=== PATIENT | female | born 1950 | race Two or more races ===

== ENCOUNTER → 2024-11-11 | Outpatient (CLI) | payer MEDICARE, SELFPAY ==
--- NOTE | 2024-11-11 13:53 | XR_ITS ---
Examination: PA lateral chest 2 views TECHNIQUE: Upright PA lateral chest 2 views Exam date and time: November 11, 2024 1410 hours Comparison July 30, 2022 INDICATIONS: Coughing wheezing beginning 3 months ago. FINDINGS: Normal heart size No pneumonia or pulmonary edema Moderate osteopenia Accentuation basilar bronchial vascular markings IMPRESSION: Basilar bronchitis pattern
== END | disposition home or self-care (01) ==
LOC: CDIM 13:34
PROVIDERS: PCP Internal Medicine; Referring Provider Nurse Practitioner Family; Visit Provider Nurse Practitioner Family
DX: R05.3 Chronic cough (principal)
CPT/HCPCS: 71046

== ENCOUNTER → 2024-11-12 | Outpatient (CLI) | payer MEDICARE, SELFPAY ==
[2024-11-12 11:57] LABS: Influenza A Ag Negative; Influenza B Ag Negative; Respiratory Syncytial Virus Ag Negative (Negative)
[2024-11-12 15:17] LABS: Mono Screen Negative (Negative)
== END | disposition home or self-care (01) ==
LOC: COPL 10:15
PROVIDERS: PCP Internal Medicine; Referring Provider Nurse Practitioner Family; Visit Provider Nurse Practitioner Family
DX: R05.3 Chronic cough (principal); J42 Unspecified chronic bronchitis; R06.2 Wheezing
CPT/HCPCS: 36415; 86308; 87502; 87634

== ENCOUNTER → 2024-11-13 | Outpatient (CLI) | payer MEDICARE, SELFPAY ==
[2024-11-13 14:03] LABS: Misc Send Out* See Sep Rpt
[2024-11-13 14:03] LABS: Misc Send Out* See Sep Rpt
== END | disposition home or self-care (01) ==
LOC: SLDO 13:54
PROVIDERS: Referring Provider Nurse Practitioner Family; Visit Provider Nurse Practitioner Family
DX: R05.3 Chronic cough (principal); J42 Unspecified chronic bronchitis; R06.2 Wheezing
CPT/HCPCS: 86603; 87425

== ENCOUNTER → 2025-01-21 | Outpatient (CLI) | payer MEDICARE, SELFPAY ==
[2025-01-21 12:08] LABS: Alanine Aminotransferase 17 U/L (10-49); Albumin, Serum 4.3 gm/dL (3.4-4.8); Alkaline Phosphatase 54 U/L (46-116); Aspartate Amino Transferase 21 U/L (0-34); Bilirubin,Direct 0.1 mg/dL (0.0-0.3); Bilirubin,Total 0.5 mg/dL (0.3-1.2); Cardiac Risk Estimate 3.4 RATIO (3.7-5.6); Cholesterol 180 mg/dL (132-200); HDL Cholesterol 53 mg/dL (40-60); LDL Cholesterol,Calculated 99 mg/dL (0-130); Total Protein 6.7 gm/dL (5.7-8.2); Triglycerides 142 mg/dL (30-150)
[2025-01-29 06:35] LABS: Direct LDL* 104 mg/dL (<100)
== END | disposition home or self-care (01) ==
LOC: COPL 10:10
PROVIDERS: PCP Internal Medicine; Referring Provider Internal Medicine Cardiovascular Disease; Visit Provider Internal Medicine Cardiovascular Disease
DX: E11.9 Type 2 diabetes mellitus without complications (principal); E78.00 Pure hypercholesterolemia, unspecified
CPT/HCPCS: 36415; 80061; 80076; 83721

== ENCOUNTER → 2025-08-05 | Outpatient (CLI) | payer MEDICARE, SELFPAY ==
[2025-08-05 10:41] LABS: Basophils # (Auto) 0.1 Thou/mm3 (0.0-0.2); Basophils % (Auto) 1 % (0-2.5); Eosinophils # (Auto) 0.2 Thou/mm3 (0.0-0.5); Eosinophils % (Auto) 3 % (0-10); Hematocrit 37.3 % (36.0-46.0); Hemoglobin 12.6 g/dL (12.0-16.0); Immature Granulocytes Auto 0.04 Thou/mm3 (0.00-0.00); Lymphocytes # (Auto) 2.0 Thou/mm3 (1.0-4.8); Lymphocytes % (Auto) 38 % (10-50); Mean Corpuscular HGB Conc 33.8 g/dl (31.0-37.0); Mean Corpuscular Hemoglobin 31.4 pg (25.0-35.0); Mean Corpuscular Volume 93 fL (80-100); Monocytes # (Auto) 0.5 Thou/mm3 (0.0-0.8); Monocytes % (Auto) 10 % (0-12); Neutrophils # (Auto) 2.6 Thou/mm3 (1.8-7.7); Neutrophils % (Auto) 48 % (37-80); Nucleated Red Blood Cell # 0.00 Thou/mm3 (0.00-0.00); Nucleated Red Blood Cell % 0 /100 WBC (0); Platelet Count 275 Thou/mm3 (140-440); RDW Standard Deviation 39.8 fL (36.4-46.3); Red Blood Count 4.01 Miln/mm3 (4.00-5.20); White Blood Count 5.4 Thou/mm3 (3.6-11.0)
[2025-08-05 11:02] LABS: Alanine Aminotransferase 15 U/L (10-49); Albumin, Serum 4.3 gm/dL (3.4-4.8); Alkaline Phosphatase 49 U/L (46-116); Anion Gap 6 (7-16); Aspartate Amino Transferase 20 U/L (0-34); BUN/Creatinine Ratio 22 Ratio (12-20); Bilirubin,Direct 0.2 mg/dL (0.0-0.3); Bilirubin,Total 0.5 mg/dL (0.3-1.2); Blood Urea Nitrogen 20 mg/dL (9-23); Calcium 9.8 mg/dL (8.3-10.6); Carbon Dioxide 28.7 mMol/L (20.0-31.0); Chloride 106 mMol/L (98-107); Creatinine (Component) 0.9 mg/dL (0.6-1.3); Glucose 102 mg/dL (74-106); Osmolality,Calculated 283 (275-295); Phosphorous 3.2 mg/dL (2.4-5.1); Potassium 4.0 mMol/L (3.4-5.1); Sodium 141 mMol/L (136-145); Total Protein 6.5 gm/dL (5.7-8.2); eGFR > 60 See Note
== END | disposition home or self-care (01) ==
LOC: COPL 09:59
PROVIDERS: PCP Internal Medicine; Referring Provider Internal Medicine Cardiovascular Disease; Visit Provider Internal Medicine Cardiovascular Disease
DX: I20.89 Other forms of angina pectoris (principal)
CPT/HCPCS: 36415; 80048; 80076; 84100; 85025